=== PATIENT | male | born 1985 | race Two or more races ===

== ENCOUNTER 2022-06-11 11:27 | Inpatient (IN) | payer SELFPAY ==
[~2022-06-11] VITALS: Ht 170.2 cm; Wt 69.9 kg
[2022-06-11 12:32] LABS: Basophils # (auto) 0 10 ^3/uL (0-0.2); Basophils % (auto) 0.3 % (0.0-2.0); Eosinophils # (auto) 0 10 ^3/uL (0-0.8); Eosinophils % (auto) 0.3 % (0.0-7.0); Hematocrit 48.7 % (41.0-53.0); Hemoglobin 16.6 g/dL (13.5-17.5); Lymphocytes # (auto) 1.3 10 ^3/uL (0.4-5.4); Lymphocytes % (auto) 16.4 % (10.0-50.0); Mean Corpuscular Hgb Conc. 34.1 g/dL (32.0-36.0); Mean Corpuscular Volume 90.8 fL (80.0-100.0); Monocytes # (auto) 0.8 10 ^3/uL (0-1.3); Monocytes % (auto) 10.8 % (0.0-12.0); Neutrophils # (auto) 5.6 10 ^3/uL (1.6-8.6); Neutrophils % (auto) 72.2 % (37.0-80.0); Nucleated Red Blood Cells % 0.2 %; Red Blood Cells 5.36 10^6/uL (4.5-5.90); Red Cell Distribution Width 13.9 % (11.8-14.3); White Blood Cell 7.8 10^3/uL (4.4-10.8)
[2022-06-11 12:55] LABS: Albumin 3.1 g/dL (3.4-5.0); Calcium 8.3 mg/dL (8.5-10.1); Potassium 3.6 mmol/L (3.5-5.1)
[2022-06-11 12:59] LABS: BUN/Creatinine Ratio 22.4; Bilirubin, Total 0.7 mg/dL (0.2-1.0); Total Protein 7.5 g/dL (6.4-8.2)
[2022-06-11] MEDS ORDERED: metroNIDAZOLE 500MG/100ML 100 ML IV ONE (14:30)
[2022-06-11] MEDS ORDERED: SODIUM CHLORIDE 0.9% 1,000 ML IV ONE (14:30)
[2022-06-11] MEDS ORDERED: levoFLOXacin 500MG 100 ML IV ONE (14:30)
[2022-06-11] MEDS ORDERED: ACETAMINOPHEN 325 MG TAB PO PRN ×2 (15:45)
[2022-06-11] MEDS ORDERED: ONDANSETRON HCL 4 MG/2 ML VIAL IV PRN (15:45)
[2022-06-11] MEDS: SODIUM CHLORIDE 0.9% 1,000 ML IV SCH (15:47)
[2022-06-12] MEDS: SODIUM CHLORIDE 0.9% 1,000 ML IV SCH ×3 (00:28→19:26)
[2022-06-12] MEDS: metroNIDAZOLE 500MG/100ML 100 ML IV SCH ×4 (00:28→21:55)
[2022-06-12 02:22] LABS: Alcohol, Urine < 3.0 mg/dL (0-10); Amphetamine Screen, Urine NEGATIVE (NEGATIVE); Barbiturate Scree,Urine NEGATIVE (NEGATIVE); Benzodiazephine Screen, Urine NEGATIVE (NEGATIVE); Cannabinoid Screen, Urine NEGATIVE (NEGATIVE); Cocaine Screen, Urine NEGATIVE (NEGATIVE); Opiate Scree,Urine NEGATIVE (NEGATIVE); Phencyclidine Screen, Urine NEGATIVE (NEGATIVE)
[2022-06-12 02:30] LABS: Urine Bacteria NONE SEEN /hpf (None Seen); Urine Blood Negative /uL (Negative); Urine Specific Gravity 1.013 (1.001-1.035); Urine WBC 1 /hpf (0 - 3)
[2022-06-12 05:34] LABS: Albumin 2.3 g/dL (3.4-5.0); Calcium 7.6 mg/dL (8.5-10.1); Potassium 3.3 mmol/L (3.5-5.1)
[2022-06-12 05:39] LABS: Bilirubin, Total 0.5 mg/dL (0.2-1.0); Total Protein 6.2 g/dL (6.4-8.2)
[2022-06-12 05:45] LABS: Basophils % (manual) 0 (0.0-2.0); Blast Cells 0; Hematocrit 39.4 % (41.0-53.0); Hemoglobin 13.7 g/dL (13.5-17.5); Mean Corpuscular Hemoglobin 31.3 pg (28.0-32.0); Mean Corpuscular Hgb Conc. 34.7 g/dL (32.0-36.0); Mean Corpuscular Volume 90.4 fL (80.0-100.0); Metamyelocytes % 0; Myelocytes % 0; Promyelocytes % 0; Reactive Lymphocytes 0; Red Blood Cells 4.36 10^6/uL (4.5-5.90); Red Cell Distribution Width 14.2 % (11.8-14.3); White Blood Cell 7.5 10^3/uL (4.4-10.8)
[2022-06-12 06:44] LABS: Band Neutrophils % (manual) 7; Eosinophils % (manual) 1 (0-7); Lymphocytes % (manual) 30 (10.0-50.0); Monocytes % (manual) 18 (0-12)
[2022-06-12] MEDS ORDERED: POTASSIUM CHL 20 Meq TABLET PO ONE (07:15)
[2022-06-12] MEDS: cefTRIAXone 1GM/50ML D5W 50 ML IV SCH (09:12)
[2022-06-12 10:30] VITALS: BP 109/66
[2022-06-12 13:00] VITALS: BP 109/66
[2022-06-12 16:55] VITALS: BP 92/52
[2022-06-12 20:00] VITALS: BP 100/56
[2022-06-12 21:47] VITALS: BP 100/56
[2022-06-13] VITALS (7 sets, daily range): BP systolic 98–111; BP diastolic 57–65
[2022-06-13] MEDS: metroNIDAZOLE 500MG/100ML 100 ML IV SCH ×3 (00:13→18:22)
[2022-06-13] MEDS: SODIUM CHLORIDE 0.9% 1,000 ML IV SCH ×3 (01:05→17:45)
[2022-06-13 08:56] LABS: BUN/Creatinine Ratio 17.1; Calcium 7.6 mg/dL (8.5-10.1)
[2022-06-13] MEDS: cefTRIAXone 1GM/50ML D5W 50 ML IV SCH (09:00)
[2022-06-14] MEDS: metroNIDAZOLE 500MG/100ML 100 ML IV SCH ×3 (00:04→16:00)
[2022-06-14] MEDS: SODIUM CHLORIDE 0.9% 1,000 ML IV SCH ×2 (03:27→10:25)
[2022-06-14 05:00] VITALS: BP 125/71
[2022-06-14 06:09] LABS: BUN/Creatinine Ratio 15.5; Calcium 7.7 mg/dL (8.5-10.1); Potassium 3.4 mmol/L (3.5-5.1)
[2022-06-14 08:00] VITALS: BP 98/57
[2022-06-14] MEDS: cefTRIAXone 1GM/50ML D5W 50 ML IV SCH (09:00)
[2022-06-14 13:00] VITALS: BP 114/67
[2022-06-14] MEDS ORDERED: CIPR-173 PO (15:01)
[2022-06-14 15:54] VITALS: BP 114/67
== END 2022-06-14 16:00 | disposition home or self-care (01) | DRG 392 ==
LOC: ER 11:27 → EDBD 11:27 → OVERFLOW 15:37 → EAST 06-12 09:23
PROVIDERS: ADMIT Nurse Practitioner Family; ATTEND Student in an Organized Health Care Education/Training Program
DX: A09 Infectious gastroenteritis and colitis, unspecified (principal); E46 Unspecified protein-calorie malnutrition; N17.9 Acute kidney failure, unspecified; E86.0 Dehydration; G43.909 Migraine, unspecified, not intractable, without status migrainosus; Z20.822 Contact with and (suspected) exposure to COVID-19; E87.6 Hypokalemia; E88.09 Other disorders of plasma-protein metabolism, not elsewhere classified; Z68.24 Body mass index [BMI] 24.0-24.9, adult; Z87.442 Personal history of urinary calculi
CPT/HCPCS: 36415; 74176; 80048; 80053; 80307; 81001; 82270; 85007; 85025; 85027; 85048; 86141; 87045; 87427; 87493; 96365; 96367; G0378; J0696; J1956; J3490

== ENCOUNTER 2024-08-21 19:09 | Emergency (ER) | payer MEDICAID, OTHER ==
[~2024-08-21] VITALS: Ht 170.2 cm; Wt 70.0 kg
[~2024-08-21 19:09] MED LIST: CIPR-173 PO
[2024-08-21 19:29] VITALS: BP 134/84; PULSE 95; RESP 18; O2SAT 98
[2024-08-21] MEDS ORDERED: MAALOX PLUS or MAALOX 30 ML PO ONE (19:45)
[2024-08-21] MEDS ORDERED: MAGNESIUM CITRATE SOLUTION 300 ML BTL PO ONE (19:45)
== END 2024-08-21 21:15 | disposition left against medical advice (07) ==
LOC: EDUNIT# 19:09 → ER 19:09 → EDBD 19:09 → ER 21:15
DX: K59.00 Constipation, unspecified (principal); Z53.21 Procedure and treatment not carried out due to patient leaving prior to being seen by health care provider